=== PATIENT | male | born 1985 | race American Indian/Alaskan Native ===

== ENCOUNTER 2020-05-08 09:16 | Emergency (ER) | payer SELFPAY ==
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
[2020-05-08 09:23] VITALS: BP 127/79
[2020-05-08] MEDS ORDERED: ACETAMINOPHEN W/CODEINE 300-30 MG TAB PO ONE (09:44)
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
--- NOTE | 2020-05-08 10:15 | XRay Report ---
ABDOMEN 3 VIEW(S) INDICATION / CLINICAL INFORMATION: Right-sided abdominal pain. COMPARISON: None available. FINDINGS: TUBES / LINES: None. BOWEL GAS PATTERN: No significant abnormality. Moderate amount of colonic stool FREE AIR / EXTRALUMINAL GAS: None seen. ADDITIONAL FINDINGS: No significant additional findings. IMPRESSION: 1. Constipation. No significant abnormality. Signer Name: Hever Curiel MD Signed: 05/08/2020 10:10 AM Workstation Name: [id number]
== END 2020-05-08 10:46 | disposition home or self-care (01) ==
LOC: ED 09:16
DX: S30.811A Abrasion of abdominal wall, initial encounter (principal); M54.6 Pain in thoracic spine; Z79.899 Other long term (current) drug therapy; V49.49XA Driver injured in collision with other motor vehicles in traffic accident, initial encounter; Y93.89 Activity, other specified; Y92.488 Other paved roadways as the place of occurrence of the external cause; Y99.8 Other external cause status
CPT/HCPCS: 71111; 74019; 99283